=== PATIENT | male | born 1995 | race Caucasian/White ===

== ENCOUNTER 2016-09-24 09:00 | Outpatient (RCR) | payer BC ==
[~2016-09-24 09:00] MED LIST: CEPHALEXIN500 M1 PO; PERCOCET 325 MG1 TA2 PO
== END 2016-09-25 10:45 | disposition home or self-care (01) ==
LOC: WSOT 09:00
DX: Z47.89 Encounter for other orthopedic aftercare (principal); M67.833 Other specified disorders of tendon, right wrist